=== PATIENT | female | born 1975 | race Caucasian/White ===

== ENCOUNTER 2024-12-09 17:19 | Emergency (ER) | payer OTHER, SELFPAY ==
[2024-12-09] VITALS (18 sets, daily range): BP systolic 120–126; BP diastolic 76–78; PULSE 55–87; TEMP 36.8; O2SAT 98–100; BMI 24.9
--- NOTE | 2024-12-09 17:51 | ECG_ITS ---
[facility] Test Date: 2024-12-09 Pat Name: PINKY SHOEMAKER Department: Room: - Gender: Female [employer]: : 1975 Requested By: [id number] Order Number: [id number] Reading MD: REJI WARD M.D. Measurements Intervals [place] Rate: 58 P: 67 WI: 152 QRS: 42 QRSD: 76 T: 46 QT: 404 QTc: 401 Interpretive Statements 1100 Sinus rhythm 9110 normal ECG Compared to ECG 04/03/2021 17:52:08 No significant changes Electronically Signed On 12-09-2024 18:19:02 EDT by REJI WARD M.D.
--- NOTE | 2024-12-09 17:52 | ED.GENADUL1 ---
HPI HPI - General Adult General Chief complaint: Weakness Stated complaint: Nausea/Vomiting/Diarrhea Time Seen by Provider: 12/09/24 17:47 Mode of arrival: walk-in History of Present Illness HPI narrative: 49-year-old female presents to the emergency department for a chief complaint of an episode of being flushed and feeling dizzy. This happened while she was at work and she states it was not particularly hot there today. She felt like her face was getting flushed and she felt lightheaded and dizzy and thought she was going to pass out. She still nauseous but she never vomited. She felt fine earlier in the day. Related Data Home Medications ?Medication ?Instructions ?Recorded ?Confirmed atorvastatin 20 mg tablet 20 mg PO DAILY 12/09/24 12/09/24 ibuprofen 800 mg tablet 800 mg PO Q12H 12/09/24 12/09/24 Allergies Allergy/AdvReac Type Severity Reaction Status Date / Time Sulfa (Sulfonamide AdvReac Severe Anaphylaxis Verified 12/09/24 17:30 Antibiotics) Review of Systems ROS Narrative A ten point review of systems is negative except as noted above. PFSH PFSH Social History Little interest or pleasure in doing things: not at all Feeling down, depressed, or hopeless: not at all Exam Narrative Exam Narrative: Nurses note and vital signs reviewed and patient is not hypoxic. General: The patient appears in no apparent distress. Patient is resting comfortably on cart. Skin: Warm, dry, no pallor noted. There is no rash noted. Her face is mildly flushed. Head: Normocephalic, atraumatic Eye: Normal conjunctiva, no drainage Ears, Nose, Mouth, and Throat: oral mucosa is moist. Nares patent. Cardiovascular: Regular Rate and Rhythm Respiratory: Patient is in no distress, no accessory muscle use, lungs are clear to auscultation, no wheezing, rales or rhonchi Back: non-tender GI: Soft and nontender Musculoskeletal: The patient has no evidence of calf tenderness, no pitting edema, symmetrical pulses noted bilaterally Neurological: A&O, normal speech Psychiatric: Cooperative Constitutional Vital Signs, click to edit/add: Last Vital Signs Temp 98.2 F 12/09/24 17:31 Pulse 60 12/09/24 18:27 Resp 16 12/09/24 18:27 BP 126/78 12/09/24 18:27 Pulse Ox 100 12/09/24 18:27 Course Vital Signs Vital signs: Vital Signs Temperature 98.2 F 12/09/24 17:31 Pulse Rate 87 12/09/24 17:31 Respiratory Rate 18 12/09/24 17:31 Blood Pressure 120/76 12/09/24 17:31 Pulse Oximetry 98 12/09/24 17:31 Temperature 98.2 F 12/09/24 17:31 Pulse Rate 60 12/09/24 18:27 Respiratory Rate 16 12/09/24 18:27 Blood Pressure 126/78 12/09/24 18:27 Pulse Oximetry 100 12/09/24 18:27 Medical Decision Making MDM Narrative Medical decision making narrative: Tests are ordered and the patient is signed out to Dr. Bazzi at change of shift. Blood work is essentially normal. Lab Data Labs: Lab Results 12/09/24 Range/Units 18:20 WBC 11.0 (4.0-11.0) 10^3/uL RBC 4.41 (4.20-5.40) 10^6/uL Hgb 13.0 (12.0-16.0) g/dL Hct 37.4 (36.0-48.0) % MCV 84.8 (81.0-99.0) fL MCH 29.5 (26.7-34.0) pg MCHC 34.8 (29.9-35.2) g/dL RDW 12.3 (11.0-15.0) % Plt Count 362 (150-450) 10^3/uL MPV 9.5 (9.5-13.5) fL Neut % (Auto) 78.6 H (43.0-75.0) % Lymph % (Auto) 13.9 L (20.5-60.0) % [place] % (Auto) 4.9 (1.7-12.0) % Eos % (Auto) 1.8 (0.9-7.0) % Baso % (Auto) 0.5 (0.2-2.0) % Neut # (Auto) 8.7 H (1.4-6.5) 10^3/uL Lymph # (Auto) 1.5 (1.2-3.8) 10^3/uL [place] # (Auto) 0.5 (0.3-0.8) 10^3/uL Eos # (Auto) 0.2 (0.0-0.7) 10^3/uL Baso # (Auto) 0.1 (0.0-0.1) 10^3/uL Abs Immat Gran (auto) 0.03 (0.00-0.03) 10^3/uL Imm/Tot Granulo (auto) 0.3 (0.0-0.5) % Sodium 138 (136-145) mmol/L Potassium 3.7 (3.5-5.1) mmol/L Chloride 103 (98-107) mmol/L Carbon Dioxide 29.5 (21.0-32.0) mmol/L Anion Gap 9.2 BUN 13.0 (7.0-18.0) mg/dL Creatinine 0.84 (0.55-1.02) mg/dL Est GFR ( Amer) >60 (>=60 mL/min/1.73m^2) Est GFR (Non-Af Amer) >60 (>=60 mL/min/1.73m^2) BUN/Creatinine Ratio 15.5 Glucose 88 (74-106) mg/dL Calcium 10.0 (8.5-10.1) mg/dL Discharge Plan Discharge Patient Disposition: Still a Patient
[2024-12-09 18:29] LABS: Basophils Absolute Auto 0.1 10^3/uL (0.0-0.1); Basophils Percent Auto 0.5 % (0.2-2.0); Eosinophils Absolute Auto 0.2 10^3/uL (0.0-0.7); Eosinophils Percent Auto 1.8 % (0.9-7.0); Hematocrit 37.4 % (36.0-48.0); Immature Granulocytes Abs Auto 0.03 10^3/uL (0.00-0.03); Immature Granulocytes Pct Auto 0.3 % (0.0-0.5); Lymphocytes Absolute Auto 1.5 10^3/uL (1.2-3.8); Lymphocytes Percent Auto 13.9 % (20.5-60.0); Mean Corpuscular HGB Conc 34.8 g/dL (29.9-35.2); Mean Corpuscular Hemoglobin 29.5 pg (26.7-34.0); Mean Corpuscular Volume 84.8 fL (81.0-99.0); Mean Platelet Volume 9.5 fL (9.5-13.5); Monocytes Absolute Auto 0.5 10^3/uL (0.3-0.8); Monocytes Percent Auto 4.9 % (1.7-12.0); Neutrophils Absolute Auto 8.7 10^3/uL (1.4-6.5); Neutrophils Percent Auto 78.6 % (43.0-75.0); Platelet Count 362 10^3/uL (150-450); Red Blood Count 4.41 10^6/uL (4.20-5.40); Red Cell Distribution Width 12.3 % (11.0-15.0)
[2024-12-09] MEDS: 0.9 % SODIUM CHLORIDE 1,000 ML 1000 ML IV (18:34)
[2024-12-09] MEDS: ONDANSETRON PF 4 MG/2 ML VIAL IV (18:34)
[2024-12-09 18:37] LABS: Anion Gap 9.2; BUN Creatinine Ratio 15.5; Carbon Dioxide 29.5 mmol/L (21.0-32.0); Chloride 103 mmol/L (98-107); Estimated GFR (African America >60 (>=60 mL/min/1.73m^2); Estimated GFR (Non-African Ame >60 (>=60 mL/min/1.73m^2); Glucose 88 mg/dL (74-106); Potassium 3.7 mmol/L (3.5-5.1); Sodium 138 mmol/L (136-145)
[2024-12-09 19:16] LABS: Bilirubin Urine NEGATIVE (NEGATIVE); Blood Urine NEGATIVE (NEGATIVE); Clarity Urine CLEAR (CLEAR); Color Urine LT. YELLOW (YELLOW); Glucose Urine UA NEGATIVE (NEGATIVE); Ketones Urine NEGATIVE (NEGATIVE); Leukocyte Esterase Urine NEGATIVE (NEGATIVE); Nitrite Urine NEGATIVE (NEGATIVE); Protein Urine NEGATIVE (NEG/TRACE); Specific Gravity Urine <=1.005 (1.005-1.025); Urobilinogen Urine 0.2 EU/dL (0.2-1.0); pH Urine 6.5 (5.0-9.0)
[2024-12-09 19:21] LABS: Bacteria Urine TRACE #/HPF (NONE SEEN); Cast Seen? NONE SEEN #/LPF (NONE SEEN); Crystals Seen? None Seen #/HPF (None Seen); Mucus Urine NONE SEEN (NONE SEEN); RBC Urine 0-2 #/HPF (0-2); Squamous Epithelial Cell Urine RARE #/LPF (NONE/RARE); Urine Culture Indicated NO; WBC Urine 0-2 #/HPF (NONE SEEN)
[2024-12-09 19:50] LABS: Troponin I High Sensitivity 22.5 pg/mL (4.0-51.3)
--- NOTE | 2024-12-09 20:16 | ED_ITS ---
HPI - Dizziness General Chief Complaint: Weakness Stated Complaint: Nausea/Vomiting/Diarrhea Time Seen by Provider: 12/09/24 17:47 Mode of arrival: walk-in History of Present Illness HPI Narrative: This 49-year-old female was signed out to me at shift change. The patient works at [employer] and was on the floor when she suddenly became flushed and nauseated. She was given IV fluids and Zofran and signed out to me. Patient was seen and examined. She is well-appearing. She has no focal deficits. She has been ambulatory to the bathroom several times without any difficulty. Routine labs are reviewed. She has normal white count and hemoglobin. Electrolytes are normal. Kidney function and liver enzymes are normal. Troponin is normal. Urine is negative for infection. Results of her labs were discussed with her. She states that she is under a lot of stress at her job as her stomach is always in knots when she goes to work. She has put in for a transfer to a another location due to the stress in her current position but is waiting for that transferred to take place. She is hemodynamically stable for discharge at this time. She will be discharged home with a prescription for Zofran with recommendation for close follow-up with her family physician. Related Data Home Medications ?Medication ?Instructions ?Recorded ?Confirmed atorvastatin 20 mg tablet 20 mg PO DAILY 12/09/2402/26 ibuprofen 800 mg tablet 800 mg PO Q12H 12/09/2402/26 Allergies Allergy/AdvReac Type Severity Reaction Status Date / Time Sulfa (Sulfonamide AdvReac Severe Anaphylaxis Verified 12/09/24 17:30 Antibiotics) PFSH PFSH Social History Little interest or pleasure in doing things: not at all Feeling down, depressed, or hopeless: not at all Exam Constitutional Vital Signs, click to edit/add: Last Vital Signs Temp 98.2 F 12/09/24 17:31 Pulse 68 12/09/24 20:00 Resp 19 12/09/24 20:00 BP 126/78 12/09/24 18:27 Pulse Ox 100 12/09/24 19:13 O2 Del Method Room Air 12/09/24 19:13 Course Vital Signs Vital signs: Vital Signs Temperature 98.2 F 12/09/24 17:31 Pulse Rate 87 12/09/24 17:31 Respiratory Rate 18 12/09/24 17:31 Blood Pressure 120/76 12/09/24 17:31 Pulse Oximetry 98 12/09/24 17:31 Temperature 98.2 F 12/09/24 17:31 Pulse Rate 68 12/09/24 20:00 Respiratory Rate 19 12/09/24 20:00 Blood Pressure 126/78 12/09/24 18:27 Pulse Oximetry 100 12/09/24 19:13 Oxygen Delivery Method Room Air 12/09/24 19:13 MDM - Dizziness Lab Data Labs: Lab Results 12/09/24 12/09/24 12/09/24 Range/Units 18:20 19:02 19:27 WBC 11.0 (4.0-11.0) 10^3/uL RBC 4.41 (4.20-5.40) 10^6/uL Hgb 13.0 (12.0-16.0) g/dL Hct 37.4 (36.0-48.0) % MCV 84.8 (81.0-99.0) fL MCH 29.5 (26.7-34.0) pg MCHC 34.8 (29.9-35.2) g/dL RDW 12.3 (11.0-15.0) % Plt Count 362 (150-450) 10^3/uL MPV 9.5 (9.5-13.5) fL Neut % (Auto) 78.6 H (43.0-75.0) % Lymph % (Auto) 13.9 L (20.5-60.0) % [place] % (Auto) 4.9 (1.7-12.0) % Eos % (Auto) 1.8 (0.9-7.0) % Baso % (Auto) 0.5 (0.2-2.0) % Neut # (Auto) 8.7 H (1.4-6.5) 10^3/uL Lymph # (Auto) 1.5 (1.2-3.8) 10^3/uL [place] # (Auto) 0.5 (0.3-0.8) 10^3/uL Eos # (Auto) 0.2 (0.0-0.7) 10^3/uL Baso # (Auto) 0.1 (0.0-0.1) 10^3/uL Abs Immat Gran (auto) 0.03 (0.00-0.03) 10^3/uL Imm/Tot Granulo (auto) 0.3 (0.0-0.5) % Sodium 138 (136-145) mmol/L Potassium 3.7 (3.5-5.1) mmol/L Chloride 103 (98-107) mmol/L Carbon Dioxide 29.5 (21.0-32.0) mmol/L Anion Gap 9.2 BUN 13.0 (7.0-18.0) mg/dL Creatinine 0.84 (0.55-1.02) mg/dL Est GFR ( Amer) >60 (>=60 mL/min/1.73m^2) Est GFR (Non-Af Amer) >60 (>=60 mL/min/1.73m^2) BUN/Creatinine Ratio 15.5 Glucose 88 (74-106) mg/dL Calcium 10.0 (8.5-10.1) mg/dL Troponin I High Sens 22.5 (4.0-51.3) pg/mL Urine Color Lt. yellow (YELLOW) Urine Clarity Clear (CLEAR) Urine pH 6.5 (5.0-9.0) Ur Specific [place] <=1.005 A (1.005-1.025) Urine Protein Negative (NEG/TRACE) mg/dL Urine Glucose (UA) Negative (NEGATIVE) mg/dL Urine Ketones Negative (NEGATIVE) mg/dL Urine Occult Blood Negative (NEGATIVE) Urine Nitrite Negative (NEGATIVE) Urine Bilirubin Negative (NEGATIVE) Urine Urobilinogen 0.2 (0.2-1.0) EU/dL Ur Leukocyte Esterase Negative (NEGATIVE) Urine RBC 0-2 (0-2) #/HPF Urine WBC 0-2 A (NONE SEEN) #/HPF Ur Squamous Epith Cells Rare (NONE/RARE) #/LPF Urine Crystals None seen (None Seen) #/HPF Urine Bacteria Trace A (NONE SEEN) #/HPF Urine Casts None seen (NONE SEEN) #/LPF Urine Mucus None seen (NONE SEEN) Ur Culture Indicated? No Discharge Plan Discharge Chief Complaint: Weakness Clinical Impression: Near syncope Patient Disposition: Home, Self-Care Time of Disposition Decision: 20:15 Condition: Good Prescriptions / Home Meds: No Action atorvastatin 20 mg tablet 20 mg PO DAILY ibuprofen 800 mg tablet 800 mg PO Q12H Print Language: Macedonian Instructions: Near Syncope (ED) Referrals: Rodriguez MUSTAFA [Primary Care Provider, Family Practice] - 1 week
== END 2024-12-09 20:38 | disposition home or self-care (01) ==
PROVIDERS: Emergency Medicine; Emergency Provider Emergency Medicine; PCP Family Medicine
DX: R55 Syncope and collapse (principal)
CPT/HCPCS: 36415; 80048; 81001; 84484; 85025; 93005; 96361; 96374; 99285; J2405